=== PATIENT | female | born 1945 | race Caucasian/White ===

== ENCOUNTER → 2023-04-28 15:20 | Outpatient (CLI) | payer MEDICARE, OTHER, SELFPAY ==
--- NOTE | 2023-04-28 | DI.MRI.S_ITS ---
PROCEDURE: MR LUMBAR SPINE WO CON INDICATIONS: LOW BACK PAIN TECHNIQUE: Noncontrast sagittal T1 spin echo and T2 fast echo, sagittal STIR, and T2 fast spin echo through the lumbar spine. In cases with scoliosis, additional coronal T2 fast spin echo may be performed. COMPARISON: [facility] ([place]), CR, XR LUMBAR SPINE 2-3V, 12/21/2022, 14:38. FINDINGS: Image quality: Excellent. Alignment and Curvature: There is normal bony alignment. Bone Marrow: Mildly heterogeneous marrow signal throughout lumbar spine vertebral bodies, visualized lower thoracic spine vertebral bodies and throughout bony pelvis is seen suggestive of red marrow conversion. No gross marrow edema. No acute vertebral body compression fractures. No suspicious bony lesions. Spinal Cord: Conus medullaris terminates at the T12-L1 level. Visualized cord demonstrates normal signal and size. Paraspinous Soft Tissues: No paravertebral masses. T12-L1: There is loss of disc signal. No significant disc bulge, canal stenosis or neural foraminal narrowing. L1-L2: Loss of disc signal is seen. No significant disc bulge, canal stenosis or neural foraminal narrowing. L2-L3: Loss of disc signal. Mild broad-based disc bulge and bilateral facet arthrosis is seen with hypertrophy of ligamentum flavum. Mild central canal stenosis and left-sided neural foraminal narrowing is seen. No significant right-sided neural foraminal narrowing. L3-L4: Loss of disc signal. Broad-based disc bulge and bilateral facet arthrosis with hypertrophy of ligamentum flavum causing [id number] central canal stenosis, moderate right-sided neural foraminal narrowing and mild left-sided neural foraminal narrowing. L4-L5: Loss of disc signal. Broad-based disc bulge and bilateral facet arthrosis with hypertrophy of ligamentum flavum causing moderate central canal stenosis and right worse than left bilateral neural foraminal narrowing. L5-S1: Loss of disc height and disc signal is seen. Broad-based disc bulge and bilateral facet arthrosis with hypertrophy of ligamentum flavum causing mild central canal stenosis and mild bilateral neural foraminal narrowing. IMPRESSION: 1. Degenerative disc disease throughout lumbar spine causing various degrees of central canal stenosis and bilateral neural foraminal narrowing as above. 2. No marrow edema. No acute compression fracture or spondylolisthesis. 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 Dictated by: Jimy Laureano M.D. on 04/28/2023 at 22:22 Approved by: Jimy Laureano M.D. on 04/28/2023 at 22:40
== END ==
PROVIDERS: PCP Physician Assistant; Referring Provider Physician Assistant; Visit Provider Physician Assistant
DX: M51.36 Other intervertebral disc degeneration, lumbar region (principal); M51.37 Other intervertebral disc degeneration, lumbosacral region; M48.061 Spinal stenosis, lumbar region without neurogenic claudication; M48.07 Spinal stenosis, lumbosacral region; M54.50 Low back pain, unspecified
CPT/HCPCS: 72148

== ENCOUNTER → 2023-05-17 13:27 | Outpatient (CLI) | payer MEDICARE, OTHER, SELFPAY ==
[2023-05-17 21:14] LABS: Alanine Aminotransferase 15 IU/L (<35); Albumin Globulin Ratio 1.2 (1.0-2.8); Alkaline Phosphatase 57 U/L (38-126); Aspartate Aminotransferase 28 IU/L (14-36); BUN Creatinine Ratio 21.9 (6-22); Bilirubin Total 0.6 mg/dL (0.2-1.3); Blood Urea Nitrogen 14 mg/dL (7-17); Calcium 9.2 mg/dL (8.4-10.2); Carbon Dioxide 25 mmol/L (22-32); Chloride 102 mmol/L (98-107); Estimated Glomerular Filt Rate > 60 mL/min (>60); Globulin 3.3 g/dL (1.7-4.1); Glucose 97 mg/dL (80-110); HEMOLYSIS < 15 (0-50); Potassium 4.5 mmol/L (3.4-5.1); Sodium 133 mmol/L (137-145); Total Protein 7.3 g/dL (6.3-8.2)
== END ==
PROVIDERS: PCP Physician Assistant; Visit Provider Physician Assistant
DX: Z79.899 Other long term (current) drug therapy (principal)
CPT/HCPCS: 80053

== ENCOUNTER → 2023-05-29 | Outpatient (CLI) | payer MEDICARE, OTHER, SELFPAY ==
--- NOTE | 2023-05-29 13:01 | DI.RAD.S_ITS ---
Bone Density Report Name: DARON VILLARREAL Age: 78 Sex: Female Ethnicity: White Date of : 1945 Indication: postmenopausal; screening for osteoporosis; Referring Provider: MONA FERNANDEZ Study: Bone densitometry was performed. Exam Date: May 29, 2023 Accession number: [id number] Bone Density: Region BMD T-score Z-score Classification AP Spine(L1-L4) 0.745 -2.7 -0.1 Osteoporosis Femoral Neck (Left) 0.515 -3.0 -0.7 Osteoporosis Total Hip (Left) 0.650 -2.4 -0.3 Osteopenia Femoral Neck (Right) 0.565 -2.6 -0.3 Osteoporosis Total Hip (Right) 0.651 -2.4 -0.3 Osteopenia Total Hip Mean 0.650 -2.4 -0.3 Osteopenia World Health Organization criteria for BMD impression classify patients as: Normal (T-score at or above -1.0), Osteopenia (T-score between -1.0 and -2.5), or Osteoporosis (T-score at or below -2.5). 10-year Fracture Risk: FRAX not reported because: Some T-score for Spine Total or Hip Total or Femoral Neck at or below -2.5 Impression: The patient has osteoporosis, based on the Left Femoral Neck T-score. Discussion: INCREASED RISK OF FRACTURE. BONE DENSITY IS UNDESIRABLY LOW AT ONE OR MORE SKELETAL SITES, CONSISTENT WITH POSTMENOPAUSAL OSTEOPOROSIS. This patient's lowest T-score meets the World Health Organization's (WHO) criteria for osteoporosis at one or more sites (T-score -2.5 or below). In untreated patients, the risk of osteoporotic fracture increases approximately two-fold for each 1.0 SD decrease in T-score. Low bone density is not the only risk factor for fracture; also consider factors such as patient's age, frailty or poor health, risk of falling, risk of injury, previous osteoporotic fracture, family history of osteoporosis, cigarette smoking, low body weight, etc. Not everyone with low bone mineral density has osteoporosis; osteomalacia and other metabolic bone disorders should also be considered. Patients who have osteoporosis should be evaluated for specific diseases and conditions (secondary causes) that may cause or contribute to bone loss. The [place] [employer]ocrinologists (AACE) and National Osteoporosis Foundation (NOF) recommend pharmacologic intervention for all postmenopausal women whose T-score is in this range. The patient should follow a healthful lifestyle (good nutrition with adequate calcium and vitamin D, and appropriate weight-bearing exercise). Follow-Up: Consider a repeat BMD and Vertebral Fracture Assessment (VFA) exam in 2 years or sooner if medically necessary, to reassess this patient's status. Reported by: HUNTER BALDWIN M.D. on 05/29/2023 1:37:00 PM.
[2023-05-29 14:17] LABS: Carbon Dioxide 29 mmol/L (22-32); Chloride 103 mmol/L (98-107); HEMOLYSIS < 15 (0-50); Potassium 4.7 mmol/L (3.4-5.1); Sodium 134 mmol/L (137-145)
[2023-05-31 10:11] LABS: Varicella IgG Antibody 2155 index (Immune >165)
== END ==
PROVIDERS: PCP Physician Assistant; Referring Provider Physician Assistant; Visit Provider Physician Assistant
DX: Z13.820 Encounter for screening for osteoporosis (principal); M81.0 Age-related osteoporosis without current pathological fracture; E87.1 Hypo-osmolality and hyponatremia; Z78.0 Asymptomatic menopausal state; Z01.84 Encounter for antibody response examination
CPT/HCPCS: 36415; 77080; 80051; 86787

== ENCOUNTER 2023-07-11 17:04 | Emergency (ER) | payer MEDICARE, OTHER, SELFPAY ==
[2023-07-11] VITALS (14 sets, daily range): BP systolic 135–188; BP diastolic 62–105; PULSE 66–94; RESP 16–18; TEMP 36.8; O2SAT 91–100; BMI 19.8
--- NOTE | 2023-07-11 18:19 | ED_ITS ---
HPI - Extremity Injury (Lower) General Chief Complaint: Extremity Injury, Lower Stated Complaint: Left hip pain Time Seen by Provider: 07/11/23 18:09 Source: patient and EMS Mode of arrival: EMS History of Present Illness HPI Narrative: 78-year-old woman with a history of osteoporosis, insomnia, bladder spasm was out walking her dog on the trail the dog pulled on her left wrist and she fell on her left hip and buttock was unable to get up off the trail, proximally 1/4 mi from the trial head. Transported from [facility] after initial x-ray there did not show obvious fracture. She is unable to bear weight. Pain is sacrum to greater trochanter area. Related Data Previous Rx's Medication Instructions Recorded mirtazapine 7.5 mg tablet 7.5 mg PO BEDTIME #90 tabs 05/18/23 oxybutynin chloride 5 mg tablet 5 mg PO BID PRN bladder spasms 05/18/23 #180 tabs oxycodone-acetaminophen 5 mg-325 1 tab PO Q6H PRN pain #10 tabs 07/11/23 mg tablet Allergies Allergy/AdvReac Type Severity Reaction Status Date / Time No Known Drug Allergies Allergy Verified 07/11/23 15:18 Review of Systems Review of Systems Narrative: Pertinent positive and negative findings as per HPI Patient History Medical History (Updated 07/11/23 @ 22:23 by Chetna Kemp MD) Abnormal Pap smear of cervix Allergies (~1993) Chronic back pain Colon polyps Eczema (~1949) Foot fracture (~2019) Measles (~1956) Mumps (~1952) Osteoporosis (~2014) Ovarian cancer (~2006) Surgical History (Updated 03/19/23 @ 20:23 by Sylvia Stout) Anesthesia History of hysterectomy (~2006) Family History (Updated 03/19/23 @ 20:28 by Sylvia Stout) Father Stroke Mother Breast cancer Brother Colon cancer Grandfather History of heart disease Grandfather History of heart disease Social History Smoking Status: Never smoker Smoking Status: Never smoker alcohol intake frequency: 0-2 drinks per day Alcohol type: wine Substance Use Type: does not use Exam Initial Vital Signs Initial Vital Signs: Vital Signs Temperature 98.2 F 07/11/23 17:23 Pulse Rate 94 H 07/11/23 17:23 Respiratory Rate 16 07/11/23 17:23 Blood Pressure 188/94 H 07/11/23 17:23 Pulse Oximetry 95 07/11/23 17:23 Oxygen Delivery Method Room Air 07/11/23 17:23 General: Healthy appearing, in no acute distress. Able to give a complete and coherent history. Well-nourished well-developed HEENT: Moist mucous membranes, normal sclera with reactive pupils, Respiratory: Lungs are clear to auscultation, no wheezing no rales no rhonchi. Full and symmetrical air movement Cardiac: Regular rate and rhythm no murmurs no bruits Abdomen: Soft, nontender, good bowel tones, no flank pain Skin: Warm and dry, no rashes Neurologic: Grossly neurologically intact with no obvious asymmetries or abnormalities Extremities: No trauma, she is able to internally and externally rotate her le ft hip without significant pain but points to the outside of the hip as source of tenderness and is not able to bear weight on that side. There is no abnormality to the knee or knee joint. No injury to the left upper extremity or shoulder. Psych: Cooperative, appropriate insight and affect however recollection of immediate events is questionable. Course Orders Ordered: ED Orders 07/11/23 18:35 CT pelvis wo con Stat 07/11/23 19:32 Complete Blood Count AUTO DIFF Stat Comprehensive Metabolic Panel Stat Hydromorphone HCl (Hydromorphone 0.5 Mg Inj) 0.5 mg IV Q15MIN PRN PRN Reason: Pain, Last Admin: 07/11/23 18:43 Dose: 0.5 mg Documented By: ST Discontinued Medications Ondansetron HCl (Ondansetron 4 Mg/2 Ml Inj) 4 mg IV NOW ONE Stop: 07/11/23 18:36 Last Admin: 07/11/23 18:43 Dose: 4 mg Documented By: ST Vital Signs Vital signs: Vital Signs - 8 hr 07/11/23 17:23 07/11/23 17:47 07/11/23 18:00 Temperature 98.2 F Pulse Rate 94 H 69 68 Respiratory Rate 16 Blood Pressure 188/94 H Pulse Oximetry 95 97 99 Oxygen Delivery Method Room Air 07/11/23 18:26 07/11/23 18:26 07/11/23 18:30 Temperature Pulse Rate 77 Respiratory Rate Blood Pressure 139/72 165/72 H Pulse Oximetry 97 Oxygen Delivery Method 07/11/23 18:30 07/11/23 19:01 07/11/23 19:03 Temperature Pulse Rate 81 66 Respiratory Rate Blood Pressure 168/85 H Pulse Oximetry 98 100 Oxygen Delivery Method Room Air 07/11/23 19:03 07/11/23 19:30 07/11/23 19:33 Temperature Pulse Rate 73 75 Respiratory Rate Blood Pressure 149/73 H Pulse Oximetry 97 98 Oxygen Delivery Method 07/11/23 19:33 Temperature Pulse Rate 77 Respiratory Rate Blood Pressure Pulse Oximetry 99 Oxygen Delivery Method MDM - Extremity Injury (Lower) Lab Data 07/11/23 19:32 07/11/23 19:32 Labs: Lab Results 07/11/23 07/11/23 Range/Units 19:32 19:32 WBC 5.7 (4.5-11.0) X10^3/uL RBC 4.07 (4.0-5.2) X10^6/uL Hgb 12.8 (12.0-16.0) g/dL Hct 37.8 (36-46) % MCV 92.8 (80-100) fL MCH 31.4 (26-34) PG MCHC 33.8 (30-36) % RDW 12.8 (11.6-14.8) % Plt Count 214 (150-400) X10^3/uL Neut % (Auto) 78.1 H (50-75) % Lymph % (Auto) 13.0 L (25-40) % [place] % (Auto) 7.5 (3-14) % Eos % (Auto) 1.0 L (2-4) % Baso % (Auto) 0.4 (0-2) % Neut # (Auto) 4500 (2847-4317) /uL Lymph # (Auto) 700 L (9920-6172) /uL [place] # (Auto) 400 (0-900) /uL Eos # (Auto) 100 (0-450) /uL Baso # (Auto) 0 (0-100) /uL Sodium 136 L (137-145) mmol/L Potassium 3.6 (3.4-5.1) mmol/L Chloride 104 (98-107) mmol/L Carbon Dioxide 24 (22-32) mmol/L BUN 11 (7-17) mg/dL Creatinine 0.64 (0.52-1.04) mg/dL Estimated GFR > 60 (>60) mL/min BUN/Creatinine Ratio 17.2 (6-22) Glucose 99 (80-110) mg/dL Calcium 9.1 (8.4-10.2) mg/dL Total Bilirubin 0.9 (0.2-1.3) mg/dL AST 26 (14-36) IU/L ALT 17 (<35) IU/L Alkaline Phosphatase 50 (38-126) U/L Total Protein 7.3 (6.3-8.2) g/dL Albumin 3.9 (3.5-5.0) g/dL Globulin 3.4 (1.7-4.1) g/dL Albumin/Globulin Ratio 1.1 (1.0-2.8) MDM Narrative Medical decision making narrative: CC: Ground level fall onto her left side, pulled down by her dog Complicating co-morbidities: History of osteoporosis Data collected from: patient, Social determinants of health that may influence the patients condition: Medical records reviewed: Notes from her primary care provider on [place] are reviewed Differential considered: Hip fracture pelvic ring fracture, lumbar compression fracture, hip contusion Exam documented above, pertinent findings include: Pain in the left hip area with nontender internal and external rotation of the hip and no tenderness to l umbar spine to palpation and no tenderness with pelvic ring manipulation. Unable to bear weight despite a fairly benign physical exam. Lab Test results independently reviewed as above. Pertinent findings: CBC is unremarkable Chemistries are reassuring Imaging studies independently reviewed: Hip x-ray done on [place] is reviewed possible left sacral fracture with CT recommended. CT of the pelvis does not suggest bony abnormality but there is asymmetric thickening of the left piriformis muscle with adjacent fat stranding and overlying fascial thickening. Given her history, exam and overall presentation this likely is an acute left piriformis muscle injury and possible intramuscular hemorrhage. Treatments: Parenteral Dilaudid, Zofran and oral Percocet Discussion: 78-year-old woman with mechanical fall landing on her left side with a left piriformis muscle tear no dramatic bleeding appreciated but likely intra muscle hematoma. She is not had any episodes of tachycardia or hypote nsion in the emergency department to suggest larger retroperitoneal bleed or hemorrhagic shock. Patient is very clear that she will be going home this evening. She has a friend that lives here in [place] that will be coming to pick her up shortly. She apparently has crutches available at home and is wondering if we will be able to provide any pain medication. Her plan is to get back to work as tomorrow. Her plan is to follow up with her primary care doctor to figure out what activities she can and can not do. At this point I think that her plan is safe and will help facilitate all of that. Explained where the piriformis muscle is and the type of pain that she should expect. We also discussed the incidental CT finding of significant diverticulosis without diverticulitis. Discussed the importance of using MiraLax any day that she chooses to use narcotic pain medication to avoid constipation. She is able to get up with assistance pain is relatively well controlled and she is safe for discharge Discharge Plan Departure Patient Disposition: Home Clinical Impression: Piriformis muscle pain, Fall from ground level, Diverticulosis Instructions: DI for Muscle Strain Activity Restrictions/Additional Instructions: Thank you for coming in today. Fortunately, you did not break any bones. You did tear your piriformis muscle and there maybe some bleeding into the muscle itself. There is not any excessive bleeding outside of the muscle at this time. Your piriformis muscle runs along the inside of your pelvis and helps lift up and rotate your leg out. It is important in stabilizing your pelvis and helping you walk. You likely are going to have quite a bit of pain while this continues to heal. The 1st 48 hours after any injury are going to be significantly worse. One of the most significant complications can be bleading from this muscle. If you are having worsening pain dizziness, lightheadedness or new findings it is important to return to the emergency department For pain control I have given you Percocet which is Tylenol plus oxycodone. While this is very helpful in controlling pain it is a narcotic and will cause constipation. You have fairly significant diverticulosis(you do NOT have diverticulitis which is infected diverticulosis) so avoiding constipation will be very important for you. I would recommend a dose of MiraLax everyday that you use the pain medication. 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 Prescriptions: New oxycodone-acetaminophen 5-325 mg tablet 1 tab PO Q6H PRN (Reason: pain) Qty: 10 0RF No Action mirtazapine 7.5 mg tablet 7.5 mg PO BEDTIME Qty: 90 0RF oxybutynin chloride 5 mg tablet 5 mg PO BID PRN (Reason: bladder spasms) Qty: 180 0RF Referrals: Lizet James PA-C [Primary Care Provider] - Stand Alone Forms: Patient Portal/API
--- NOTE | 2023-07-11 18:35 | DI.CT.S_ITS ---
PROCEDURE: CT PEL WO CON INDICATIONS: fall, Left hip pain, negative xr TECHNIQUE: Noncontrast 3 mm axial sections acquired through the bony pelvis, with coronal and sagittal reformatting. COMPARISON: None. FINDINGS: Image quality: Excellent. Bones: Intact osseous structures. Normal bone alignment. Mild bilateral femoroacetabular joint space loss, symmetric and degenerative. Soft tissues: There is asymmetric thickening of the left piriformis muscle with adjacent fat stranding and overlying fascial thickening. Within the pelvis, there is extensive diverticulosis without focal changes of acute diverticulitis. There are minor inflammatory changes seen along the left pelvic sidewall, nonspecific. The extrapelvic musculature remain symmetric. No hip joint effusion. IMPRESSION: 1. Given history of trauma, findings likely represent an acute left piriformis muscle injury with probably small amount of intramuscular hemorrhage. 2. No hip or pelvic fractures. 3. Incidental note of extensive sigmoid diverticulosis. Dictated by: Grisel Ivan M.D. on 07/11/2023 at 19:47 Approved by: Grisel Ivan M.D. on 07/11/2023 at 19:54
[2023-07-11] MEDS: ONDANSETRON 4 MG/2 ML INJ IV (18:43)
[2023-07-11] MEDS: HYDROMORPHONE 0.5 MG INJ IV (18:43)
[2023-07-11 19:35] LABS: Add Manual Diff / Slide Review NO; Basophils Absolute Auto 0 /uL (0-100); Basophils Percent Auto 0.4 % (0-2); Eosinophils Absolute Auto 100 /uL (0-450); Hematocrit 37.8 % (36-46); Hemoglobin 12.8 g/dL (12.0-16.0); Lymphocytes Absolute Auto 700 /uL (1100-4500); Mean Corpuscular HGB Conc 33.8 % (30-36); Mean Corpuscular Hemoglobin 31.4 PG (26-34); Mean Corpuscular Volume 92.8 fL (80-100); Monocytes Absolute Auto 400 /uL (0-900); Monocytes Percent Auto 7.5 % (3-14); Neutrophils Absolute Auto 4500 /uL (1500-7000); Neutrophils Percent Auto 78.1 % (50-75); Platelet Count 214 X10^3/uL (150-400); Red Blood Cell Count 4.07 X10^6/uL (4.0-5.2); Red Cell Distribution Width 12.8 % (11.6-14.8); White Blood Cell Count 5.7 X10^3/uL (4.5-11.0)
[2023-07-11 19:47] LABS: Alanine Aminotransferase 17 IU/L (<35); Albumin 3.9 g/dL (3.5-5.0); Albumin Globulin Ratio 1.1 (1.0-2.8); Alkaline Phosphatase 50 U/L (38-126); Aspartate Aminotransferase 26 IU/L (14-36); BUN Creatinine Ratio 17.2 (6-22); Bilirubin Total 0.9 mg/dL (0.2-1.3); Blood Urea Nitrogen 11 mg/dL (7-17); Calcium 9.1 mg/dL (8.4-10.2); Carbon Dioxide 24 mmol/L (22-32); Chloride 104 mmol/L (98-107); Estimated Glomerular Filt Rate > 60 mL/min (>60); Globulin 3.4 g/dL (1.7-4.1); Glucose 99 mg/dL (80-110); HEMOLYSIS < 15 (0-50); Potassium 3.6 mmol/L (3.4-5.1); Sodium 136 mmol/L (137-145); Total Protein 7.3 g/dL (6.3-8.2)
[2023-07-11] MEDS: OXYCODONE/ACETAMINOPHEN 5/325 TABLET 1 TAB PO (22:33)
[2023-07-11] MEDS: OXYCODONE/APAP 5/325 PREPACK 1 BOTTLE MISC (22:33)
== END 2023-07-11 22:50 | disposition home or self-care (01) ==
PROVIDERS: Emergency Provider Emergency Medicine; PCP Physician Assistant
DX: S76.002A Unspecified injury of muscle, fascia and tendon of left hip, initial encounter (principal); K57.90 Diverticulosis of intestine, part unspecified, without perforation or abscess without bleeding; W18.30XA Fall on same level, unspecified, initial encounter
CPT/HCPCS: 36415; 72192; 73502; 80053; 85025; 96374; 96375; 99284; J1170; J2405

== ENCOUNTER → 2024-01-09 14:31 | Outpatient (CLI) | payer MEDICARE, OTHER, SELFPAY | PROVIDERS: PCP Physician Assistant; Visit Provider Physician Assistant | DX: N39.0 Urinary tract infection, site not specified (principal) | CPT/HCPCS: 87077; 87086; 87186 ==

== ENCOUNTER → 2024-11-08 09:06 | Outpatient (CLI) | payer MEDICARE, OTHER, SELFPAY ==
[2024-11-08 18:09] LABS: Hematocrit 38.7 % (36-46); Hemoglobin 12.9 g/dL (12.0-16.0); Mean Corpuscular HGB Conc 33.4 % (30-36); Mean Corpuscular Hemoglobin 31.1 PG (26-34); Mean Corpuscular Volume 93.1 fL (80-100); Platelet Count 161 X10^3/uL (150-400); Red Blood Cell Count 4.15 X10^6/uL (4.0-5.2); Red Cell Distribution Width 13.4 % (11.6-14.8); White Blood Cell Count 3.9 X10^3/uL (4.5-11.0)
[2024-11-08 18:10] LABS: Alanine Aminotransferase 13 IU/L (<35); Albumin 4.2 g/dL (3.5-5.0); Albumin Globulin Ratio 1.4 (1.0-2.8); Alkaline Phosphatase 53 U/L (38-126); Aspartate Aminotransferase 29 IU/L (14-36); BUN Creatinine Ratio 14.6 (6-22); Bilirubin Total 0.5 mg/dL (0.2-1.3); Blood Urea Nitrogen 12 mg/dL (7-17); Carbon Dioxide 28 mmol/L (22-32); Chloride 105 mmol/L (98-107); Cholesterol 248 mg/dL (140-199); Estimated Glomerular Filt Rate > 60 mL/min (>60); Globulin 2.9 g/dL (1.7-4.1); Glucose 92 mg/dL (80-110); HDL Cholesterol 90 mg/dL (40-60); HEMOLYSIS < 15 (0-50); LDL Cholesterol Calculated 147 mg/dL (<100); Potassium 3.8 mmol/L (3.4-5.1); Sodium 135 mmol/L (137-145); Total Protein 7.1 g/dL (6.3-8.2); Triglycerides 53 mg/dL (35-150)
[2024-11-08 18:40] LABS: TSH w/ Reflex to FT4 1.86 uIU/mL (0.47-4.68)
== END ==
PROVIDERS: PCP Physician Assistant; Referring Provider Physician Assistant Medical; Visit Provider Physician Assistant Medical
DX: T78.40XA Allergy, unspecified, initial encounter (principal); G47.00 Insomnia, unspecified; Z13.6 Encounter for screening for cardiovascular disorders; J30.9 Allergic rhinitis, unspecified; E87.1 Hypo-osmolality and hyponatremia
CPT/HCPCS: 80053; 80061; 84443; 85027

== ENCOUNTER → 2024-12-11 09:36 | Outpatient (CLI) | payer MEDICARE, OTHER, SELFPAY ==
--- NOTE | 2024-12-11 09:38 | DI.RAD.S_ITS ---
PROCEDURE: XR DEXA AXIAL SKELETON INDICATIONS: osteoporosis COMPARISON: [facility], , XR DEXA AXIAL SKELETON, 05/29/2023, 13:16. FINDINGS: Lumbar Spine: Bone mineral density 0.779 (previously 0.745) g/cm2, T score -2.4 (previously-2.7). Left Femoral Neck: Bone mineral density 0.546 (previously 0.515) g/cm2, T score -2.7 (previously-3.0) Left Hip: Bone mineral density 0.655 (previously 0.650) g/cm2, T score -2.4 (previously-2.4). Fracture Risk Calculation (when applicable): 10-year fracture risk of a major osteoporotic fracture 17 percent and of a hip fracture 6.8 percent. (T score greater or equal to -1.0 to: NORMAL) (T score from -1.1 to -2.4: OSTEOPENIA) (T score less than or equal to -2.5: OSTEOPOROSIS) IMPRESSION: Osteoporosis---recommend repeat DEXA in 2 years or less for reassessment of response to treatment. Follow-up guidelines as follows: Osteoporosis: Consider a repeat DEXA and Vertebral Fracture Assessment (VFA) exam in 2 years or sooner if medically necessary, to reassess this patient's status. Osteopenia: Consider a repeat DEXA in 2-3 years to reassess this patient's status, or if there is a new clinical indication. Normal: Consider a repeat DEXA in 5 years or sooner, or if there is a new clinical indication. All treatment decisions require clinical judgment and consideration of individual patient factors, including patient preferences, comorbidities, previous drug use, risk factors not captured in the FRAX model (e.g., frailty, falls, vitamin D deficiency, increased bone turnover, interval significant decline in bone density ) and possible under- or over-estimation of fracture risk by FRAX. In addition, the NOF Guide recommends that FDA-approved medical therapies be considered in postmenopausal women and men age >= 50 years with a: * Hip or vertebral (clinical or morphometric) fracture * T-score of <=-2.5 at the spine or hip * Ten-year fracture probability by FRAX of >= 3% for hip fracture or >=20% for major osteoporotic fracture. Dictated by: Sadi Szymanski M.D. on 12/11/2024 at 21:47 Approved by: Sadi Szymanski M.D. on 12/11/2024 at 21:49
--- NOTE | 2024-12-11 09:38 | DI.NM.S_ITS ---
PROCEDURE: NM RAKEL PERF SPECT REST & STR Rest and exercise myocardial perfusion SPECT with gated imaging and ejection fraction RADIOPHARMACEUTICAL: 12.5 mCi Tc-99m sestamibi IV at rest and 24.7 mCi Tc-99m sestamibi IV at peak exercise. A [id number] was performed. INDICATIONS: dizzy with exercise TECHNIQUE: Radiopharmaceutical was injected at peak stress test, and also at rest. SPECT images were obtained. SPECT myocardial perfusion images were displayed in short axis, horizontal long axis, and vertical long axis views. Gated images were reviewed using [employer] software. COMPARISON: None. CARDIAC STRESS: A standard Marvin treadmill exercise tolerance test was performed by the patient under the supervision of an attending staff. The patient exercised for 6 minutes and 33 seconds; 8.5 METS; functional aerobic impairment (SHILA) is -37%. Hemodynamic data: There is normal blood pressure response to exercise stress. The patient developed atrial fibrillation with RVR during exercise and thus the peak heart rate recorded at 200 bpm is not due to exercise. Symptoms: Patient denied chest pain during exercise. EKG: ECG during exercise did show 1 to 1.[address] segment depressions inferiorly and laterally that worsened with the rapid atrial fibrillation. FINDINGS: Raw data: There is good myocardial labeling by radiotracer. No significant motion artifacts. Qikk-no-ebbbg ratio is 0.3 (normal is less than 0.38 for sestamibi tracer, and less than 0.50 for thallium tracer). Left ventricle function: Gated images demonstrate normal left ventricle wall thickening. No segmental wall motion abnormality. No transient ischemic dilation; TID is 0.4 (normal less than 1.3). The left ventricle resting end-diastolic volume is 72 mL. Left ventricle stress ejection fraction is >75%; normal values are above 45%. Myocardial perfusion: There is normal distribution of activity in the left and right ventricular myocardium. No fixed or reversible perfusion defects. IMPRESSION: Low risk study for ischemia but abnormal exercise ECG. No evidence of exercise-induced ischemia on SPECT imaging. ST segment changes on the exercise ECG likely false positive. Development of atrial fibrillation with rapid ventricular response that slowed in recovery. The patient remained hemodynamically stable. Result discussed with on-call provider covering for ordering physician. Dictated by: Ira Grossman D.O. on 12/11/2024 at 17:23 Approved by: Ira Grossman D.O. on 12/11/2024 at 17:39
--- NOTE | 2024-12-11 09:38 | DI.US.S_ITS ---
PROCEDURE: US CAROTID DOPPLER BI INDICATIONS: dizziness, hypertension TECHNIQUE: Color and pulse Doppler interrogation was performed of both carotid systems, with image documentation and velocity measurements. COMPARISON: None. FINDINGS: Stenosis calculations are based on SRU (Society of Radiologists in Ultrasound) criteria. The flow velocities and the arterial waveforms are normal within both carotid arterial systems. The estimated degree of internal carotid artery stenosis is less than 50%. Antegrade flow is confirmed within both vertebral arteries. The right brachial blood pressure is 172/80. The left brachial blood pressure is 156/74. IMPRESSION: No hemodynamically significant stenosis is seen. Arterial hypertension measured at the time of this study. Dictated by: Pipo Noyola M.D. on 12/11/2024 at 12:23 Approved by: Pipo Noyola M.D. on 12/11/2024 at 12:24
--- NOTE | 2024-12-11 09:38 | DI.ECHO.S_ITS ---
[place] [facility] : : [address] : : [place] : : [id number] : : Phone: [phone] Echocardiogram Report + + :Name: DARON VILLARREAL Study Date: 12/11/2024 Height: 66.5 in: :[facility] ReadingLocation: Weight: 125 lb : : Gender: Female BSA: 1.6 m2 : :: 1945 Age: 79 yrs : :Reason For Study: EXERCISE INDUCED DIZZINESS : :Ordering Physician: SOSA, : :ROD Performed By: Radha De Jesus : :Referring: ROD SWAN : + + Interpretation Summary The ejection fraction is estimated to be 60-65%. Grade I diastolic dysfunction. The right ventricular systolic function is normal. The right ventricular systolic pressure is estimated to be at least 25 mmHg based on an estimated right atrial pressure of 3 mm Hg. There is mild mitral regurgitation. There is moderate aortic regurgitation. Procedure: A two-dimensional transthoracic echocardiogram with color flow and Doppler was performed. The study quality was technically adequate. There is no prior echocardiogram noted for this patient. The heart rate ranged between 44-62 bpm during the study. Left Ventricle: The left ventricle is normal in size. Proximal septal thickening is noted. The ejection fraction is estimated to be 60-65%. Grade I diastolic dysfunction. Right Ventricle: The right ventricle is normal size. The right ventricular systolic function is normal. Atria: The left atrium is mildly dilated. Right atrial size is normal. There is no Doppler evidence for an interatrial shunt. Mitral Valve: The mitral valve leaflets appear mildly thickened, but open well. There is mild mitral annular calcification. There is mild mitral regurgitation. Aortic Valve: The aortic valve is trileaflet. The aortic valve opens well. There is no aortic valve stenosis. There is moderate aortic regurgitation. Tricuspid Valve: The tricuspid valve leaflets are thin and pliable. There is mild to moderate tricuspid regurgitation. The right ventricular systolic pressure is estimated to be at least 25 mmHg based on an estimated right atrial pressure of 3 mm Hg. Pulmonic Valve: The pulmonic valve leaflets are thin and pliable; valve motion is normal. There is no pulmonic valvular regurgitation. Great Vessels: The aortic root is normal size. The dimensions of the ascending aorta are normal. The IVC is of normal diameter and collapses greater than 50% with a sniff. This suggests a low right atrial pressure of 3 mm Hg. Pericardium/ Pleura There is no pericardial effusion. There is no pleural effusion. MMode/2D Measurements & Calculations LVIDd: 4.1 cm LVOT diam: 2.0 cm LVIDs: 2.7 cm Ao root diam: 2.9 cm FS: 35.6 % asc Aorta Diam: 3.4 cm EPSS: 0.43 cm Ao Arch Diam (Prox Trans): 2.1 cm IVSd: 0.66 cm LVPWd: 0.79 cm LV loo. diameter/BSA (cm/m^2): 2.5 LV sys. diameter/BSA (cm/m^2): 1.6 LA A2 area: 20.9 cm2 RA long axis: 4.6 cm LA A4 area: 18.5 cm2 RA area: 15.3 cm2 LA length (vol): 5.3 cm RA vol: 43.5 ml LA vol: 61.7 ml RA : 26.4 ml/m2 LA vol index: 37.4 ml/m2 IVC diam: 2.0 cm RVD1 (basal): 3.3 cm RVD2 (mid): 2.8 cm TAPSE: 1.7 cm Doppler Measurements & Calculations Ao V2 max: 143.5 cm/sec LVOT Max Félix: 102.4 cm/sec Ao V2 mean: 100.3 cm/sec LV V1 max P.2 mmHg Ao max P.3 mmHg LV V1 VTI: 23.8 cm Ao mean P.4 mmHg VANDANA(I,D): 2.2 cm2 Ao V2 VTI: 32.8 cm VANDANA(V,D): 2.2 cm2 sev ratio: 0.73 VANDANA indexed to BSA (cm^2/m^2): 1.3 AI P1/2t: 716.9 msec AI dec slope: 188.3 cm/sec2 MV E max félix: 55.8 cm/sec TR max félix: 234.3 cm/sec MV A max félix: 36.5 cm/sec TR max P.0 mmHg MV E/A: 1.5 PA V2 max: 75.1 cm/sec Med Peak E' Félix: 6.9 cm/sec PA V2 mean: 51.8 cm/sec E/E' med: 8.1 PA mean P.2 mmHg Lat Peak E' Félix: 10.3 cm/sec PA pr(Accel): 24.2 mmHg E/E' lat: 5.4 E/e' average: 6.7 MV dec time: 0.43 sec [facility] 71.9 ml Reading Physician:03:56 PM
--- NOTE | 2024-12-11 18:04 | P.EN_ITS ---
Event Note Event Note (Rapid Response, Code, or fall): Patient presented to [facility] for an outpatient exercise stress test. During the stress test, she developed atrial fibrillation with rapid ventricular rate of 217 BPM. She was asymptomatic. At the end of the recovery period, she remained in atrial fibrillation with heart rate in the 80-90's. She was clinically stable. Dr. Oneil Lara was notified via telephone of her episode of atrial fibrillation with RVR.
== END ==
PROVIDERS: PCP Physician Assistant Medical; Referring Provider Physician Assistant Medical; Visit Provider Physician Assistant Medical
DX: R42 Dizziness and giddiness (principal); I48.91 Unspecified atrial fibrillation; I08.3 Combined rheumatic disorders of mitral, aortic and tricuspid valves; I10 Essential (primary) hypertension; M81.0 Age-related osteoporosis without current pathological fracture; R94.31 Abnormal electrocardiogram [ECG] [EKG]
CPT/HCPCS: 77080; 78452; 93017; 93306; 93880; A9502

== ENCOUNTER → 2025-01-15 08:58 | Outpatient (CLI) | payer MEDICARE, OTHER, SELFPAY ==
[2025-01-15 18:49] LABS: Alanine Aminotransferase 14 IU/L (<35); Albumin 4.2 g/dL (3.5-5.0); Albumin Globulin Ratio 1.4 (1.0-2.8); Alkaline Phosphatase 52 U/L (38-126); Aspartate Aminotransferase 29 IU/L (14-36); Bilirubin Total 0.6 mg/dL (0.2-1.3); Blood Urea Nitrogen 20 mg/dL (7-17); Calcium 9.4 mg/dL (8.4-10.2); Carbon Dioxide 26 mmol/L (22-32); Chloride 103 mmol/L (98-107); Cholesterol 211 mg/dL (140-199); Estimated Glomerular Filt Rate > 60 mL/min (>60); Globulin 2.9 g/dL (1.7-4.1); Glucose 92 mg/dL (80-110); HDL Cholesterol 87 mg/dL (40-60); HEMOLYSIS < 15 (0-50); LDL Cholesterol Calculated 115 mg/dL (<100); Potassium 4.5 mmol/L (3.4-5.1); Sodium 137 mmol/L (137-145); Total Protein 7.1 g/dL (6.3-8.2); Triglycerides 47 mg/dL (35-150)
== END ==
PROVIDERS: PCP Physician Assistant Medical; Visit Provider Physician Assistant Medical
DX: E78.00 Pure hypercholesterolemia, unspecified (principal); E78.2 Mixed hyperlipidemia; I48.0 Paroxysmal atrial fibrillation; I10 Essential (primary) hypertension
CPT/HCPCS: 80053; 80061

== ENCOUNTER → 2025-03-05 10:25 | Outpatient (CLI) | payer MEDICARE, OTHER, SELFPAY ==
[2025-03-05 19:03] LABS: Cholesterol 193 mg/dL (140-199); HDL Cholesterol 79 mg/dL (40-60); LDL Cholesterol Calculated 106 mg/dL (<100); Triglycerides 38 mg/dL (35-150)
== END ==
LOC: LAB 10:25
PROVIDERS: PCP Physician Assistant Medical; Visit Provider Family Medicine
DX: E78.5 Hyperlipidemia, unspecified (principal)
CPT/HCPCS: 80061